=== PATIENT | male | born 1960 | race Caucasian/White ===

== ENCOUNTER → 2021-11-10 03:01 | Outpatient (CLI) | payer BC, SELFPAY ==
[2021-11-10 19:24] LABS: SARS-CoV-2 RNA PCR Negative
== END ==
PROVIDERS: PCP Internal Medicine; Visit Provider Internal Medicine Gastroenterology
DX: Z01.812 Encounter for preprocedural laboratory examination (principal); Z20.822 Contact with and (suspected) exposure to COVID-19
CPT/HCPCS: C9803; U0003; U0005

== ENCOUNTER 2021-11-13 00:17 | Day surgery (SDC) | payer BC, SELFPAY ==
[2021-10-31 14:13] VITALS: BMI 28.8
--- NOTE | 2021-11-12 13:22 | PM.HPGS ---
History of Present Illness History of Present Illness Consent: Risks, benefits, and alternatives have been discussed and questions answered. Patient agrees to proceed with procedure. Chief complaint: family hx colon ca, neoplasm screening Narrative: Klaus Amador is a 61 year old male With a family history of colon cancer. His last colonoscopy was 6 years ago Review of Systems Review of Systems: All systems reviewed & are unremarkable except as noted in HPI and below PMFSH Social History Social History Smoking status: Never smoker Tobacco type: cigarettes Alcohol intake: current Alcohol use details: a few beers/week Substance use: never Substance use type: does not use Living arrangements: alone Meds Home Medications and Allergies Home Medications Medication Instructions Recorded Confirmed Type Chewable Fiber 4 tab-cap BYMOUTH DAILY 10/31/21 11/13/21 History Complete Multivitamin 1 tab-cap PO DAILY 10/31/21 11/13/21 History Allergies Allergy/AdvReac Type Severity Reaction Status Date / Time hydrocodone Allergy Intermediate Itching Verified 11/13/21 06:24 Exam Resp: Auscultation: clear to auscultation bilaterally Cardio: Rate: regular rate Rhythm: regular rhythm GI: GI Palp: Yes Soft to palpation and No Tenderness to palpation present (GI) Assessment and Plan Assessment and plan (1) Colon cancer screening: Code(s): Z12.11 - Encounter for screening for malignant neoplasm of colon Status: Acute Assessment and Plan: Colonoscopy with possible biopsy or polypectomy or cautery or injection of substances.
[2021-11-13 06:25] VITALS: BP 140/82; PULSE 79; RESP 18; TEMP 36.7; O2SAT 99
[2021-11-13] MEDS: LACTATED RINGERS 1,000 ML 150 ML IV CONT (06:36)
--- NOTE | 2021-11-13 06:36 | WPDANESEPPF ---
Anes - Initial Pre Proc Eval Procedure: Operation Date: 11/13/21 07:30 Proposed Procedures p Screening Colonoscopy - Owen Grissom MD Date/Time: 11/13/21 06:36 Surgeon: Owen Grissom MD Pre Op Diagnosis: family hx colon ca, neoplasm screening Patient Data Age: 61 Gender: M Height: 1.78 m Weight: 76.5 kg Last Vital Signs Temp 36.7 C 11/13/21 06:25 Pulse 79 11/13/21 06:25 Resp 18 11/13/21 06:25 BP 140/82 11/13/21 06:25 Pulse Ox 99 11/13/21 06:25 Allergies Allergy/AdvReac Type Severity Reaction Status Date / Time hydrocodone Allergy Intermediate Itching Verified 11/13/21 06:24 Home Medications Medication Instructions Recorded Confirmed Type Chewable Fiber 4 tab-cap BYMOUTH DAILY 10/31/21 11/13/21 History Complete Multivitamin 1 tab-cap PO DAILY 10/31/21 11/13/21 History Patient hx anesthesia problems: none Family hx anesthesia problems: none Results Review: All pre-operative results and documents have been reviewed as part of the pre-operative evaluation. [facility] Social History Social History Smoking status: Never smoker Tobacco type: cigarettes Alcohol intake: current Alcohol use details: a few beers/week Substance use: never Substance use type: does not use Living arrangements: alone Anes - Eval Final PreProcedure Day of Procedure 11/13/21 06:36 Patient weight: normal Heart: regular rate and rhythm Lungs: clear to auscultation and normal air movement Airway: Mallampati scale class II Neurological: alert and oriented Last oral intake: >/= 8 hours ASA classification: II Emergent: no Anesthetic plan: proceed Anesthesia type and monitoring: general GIVS and standard monitoring Results Review: All pre-operative results and documents have been reviewed as part of the pre-operative evaluation. Informed Consent: The patient's anesthetic plan and its attendant risks and benefits were discussed with the patient/family/POA. Questions were solicited and answers provided to the satisfaction of the patient/family/POA.
[2021-11-13 07:46] VITALS: BP 132/76; PULSE 75; RESP 18; O2SAT 97
[2021-11-13 07:56] VITALS: BP 117/76; PULSE 68; RESP 18; O2SAT 100
[2021-11-13 08:04] VITALS: BP 111/69; PULSE 67; RESP 18; O2SAT 100
== END 2021-11-13 08:14 | disposition home or self-care (01) ==
PROVIDERS: PCP Internal Medicine; Visit Provider Internal Medicine Gastroenterology
PROC: 0DJD8ZZ Inspection of Lower Intestinal Tract, Via Natural or Artificial Opening Endoscopic (ICD-10-PCS; CPT 45378; principal; 2021-11-13 07:30)
DX: Z12.11 Encounter for screening for malignant neoplasm of colon (principal); K57.30 Diverticulosis of large intestine without perforation or abscess without bleeding; Z83.71 Family history of colonic polyps; Z80.0 Family history of malignant neoplasm of digestive organs
CPT/HCPCS: 45378; J2001; J2704; J7120